=== PATIENT | female | born 1990 | race Hispanic/Latino ===

== ENCOUNTER 2020-08-29 12:07 | Emergency (ER) | payer OTHER ==
[~2020-08-29] VITALS: Ht 162.6 cm; Wt 81.6 kg
[2020-08-29] MEDS ORDERED: SUDOGEST30 MG PO (13:32)
--- OUTSIDE RECORDS SUMMARY | 2020-08-29 14:40 | XMS ---
PreManage Notification: ELIJAH BLANCO Security Manager Emergency Events No recent Security Events currently on file CRITERIA MET - [facility] Guidelines CARE PROVIDERS [facility]ETTE [facility] Current PHONE: Unknown Guidelines Source: [facility] Guidelines Date: 07/24/2019 Care Coordination: Receiving mental health services with [facility].\T\nbsp; Please contact [facility] for mental health concerns.\T\nbsp; Avani/Oneil Borges: [phone]\T\ nbsp; Mejia: [phone].\T\nbsp; E.D. VISIT COUNT (12 MO.) [address] TOTAL 2 NOTE: Visits indicate total known visits. ED/UCC VISIT TRACKING (12 MO.) 08/29/2020 12:08 [facility] [place] TYPE: Emergency COMPLAINT: - EAR PAIN, FINGER NUMBNESS 02/28/2020 16:20 [facility] [place] TYPE: Emergency DIAGNOSES: - Person with feared health complaint in whom no diagnosis is made - Calculus of gallbladder without cholecystitis without obstruction - +SCREENING, R SIDED FLANK PAIN, BRUISING - Urinary tract infection, site not specified INPATIENT VISIT TRACKING (12 MO.) No inpatient visits to display in this time frame [email or web address]
== END 2020-08-29 13:45 | disposition home or self-care (01) ==
LOC: ED 12:07
DX: H69.93 Unspecified Eustachian tube disorder, bilateral (principal); L98.8 Other specified disorders of the skin and subcutaneous tissue
CPT/HCPCS: 84703; 99283